=== PATIENT | female | born 1960 | race African-American/Black ===

== ENCOUNTER 2017-06-14 14:07 | Emergency (ER) | payer MEDICAID ==
[~2017-06-14] VITALS: Ht 165.1 cm; Wt 50.0 kg
[~2017-06-14 14:07] MED LIST: FOLIC ACID PO; MULTI VITAMINS PO; TRAM50TA PO
[2017-06-14 14:10] VITALS: BP 107/64
[2017-06-14] MEDS ORDERED: ACETAMINOPHEN 325MG TABLET PO ONE (16:15)
[2017-06-14 16:29] LABS: BASOPHILS % 0.7 % (0.0-2.0); EOSINOPHILS % 0.1 % (0.0-5.0); HEMATOCRIT. 36.1 % (36.0-48.0); HEMOGLOBIN. 12.6 g/dL (12.0-16.0); LYMPHOCYTES % 23.3 % (20.0-50.0); MEAN CORPUSCULAR HEMOGLOBIN 40.4 pg (28.0-32.0); MEAN CORPUSCULAR VOLUME 116.4 fL (81.0-99.0); MEAN PLATELET VOLUME 8.2 fl (7.4-10.4); MONOCYTES % 8.6 % (2.0-8.0); NEUTROPHILS % 67.3 % (40.0-76.0); PLATELET 165 x1000/uL (130-400); RED CELL DISTRIBUTION WIDTH 13.3 % (11.6-14.6)
[2017-06-14 16:38] LABS: CARBON DIOXIDE 29 mEq/L (21-32); CHLORIDE 104 mEq/L (98-107)
[2017-06-14 17:47] LABS: PLATELET ESTIMATE NORMAL
== END 2017-06-14 19:33 | disposition home or self-care (01) ==
LOC: ER 14:18
DX: M79.672 Pain in left foot (principal); F12.10 Cannabis abuse, uncomplicated; Z88.0 Allergy status to penicillin; Z89.429 Acquired absence of other toe(s), unspecified side; Z89.412 Acquired absence of left great toe; Z89.422 Acquired absence of other left toe(s)
CPT/HCPCS: 36415; 73630; 80048; 85025; 85651; 86140; 99285